=== PATIENT | female | born 1955 | race Caucasian/White ===

== ENCOUNTER → 2023-11-19 17:46 | Outpatient (REF) | payer OTHER, SELFPAY | LOC: WDC 17:46 | PROVIDERS: ATTENDING PHYSICIAN Nurse Practitioner Family; FAMILY PHYSICIAN Family Medicine | DX: Z12.31 Encounter for screening mammogram for malignant neoplasm of breast (principal) | CPT/HCPCS: 77063; 77067 ==

== ENCOUNTER → 2024-11-27 08:54 | Outpatient (REF) | payer OTHER, SELFPAY | LOC: HWRAD 08:54 | PROVIDERS: ATTENDING PHYSICIAN Nurse Practitioner Family | DX: M85.80 Other specified disorders of bone density and structure, unspecified site (principal) | CPT/HCPCS: 77080 ==